=== PATIENT | male | born 1985 | race Caucasian/White ===

== ENCOUNTER 2022-10-16 17:31 | Emergency (ER) | payer OTHER ==
[~2022-10-16] VITALS: Ht 175.3 cm; Wt 72.6 kg
[2022-10-16 17:33] VITALS: BP 124/89
[2022-10-16] MEDS ORDERED: BUPR75 (19:22)
[2022-10-16] MEDS ORDERED: METPHE5 (19:22)
[2022-10-16] MEDS ORDERED: PROP10 (19:22)
== END 2022-10-16 19:41 | disposition home or self-care (01) ==
LOC: ER 17:31
DX: S50.02XA Contusion of left elbow, initial encounter (principal); F43.10 Post-traumatic stress disorder, unspecified; F41.9 Anxiety disorder, unspecified; F17.210 Nicotine dependence, cigarettes, uncomplicated; Z79.899 Other long term (current) drug therapy; Z88.8 Allergy status to other drugs, medicaments and biological substances; W10.9XXA Fall (on) (from) unspecified stairs and steps, initial encounter; Y92.199 Unspecified place in other specified residential institution as the place of occurrence of the external cause
CPT/HCPCS: 73080; 96372; 99283-25; A9270; J1885